=== PATIENT | male | born 1955 | race Caucasian/White ===

== ENCOUNTER 2023-12-25 13:56 | Outpatient (OUT) | payer MEDICARE, SELFPAY ==
--- NOTE | 2023-12-25 | XR_ITS ---
The [address] [address] Patient Name: ARRON SINGH MRN: [id number] date: 1955 Sex: M Assigned Patient Location: Current Patient Location: Accession/Order Number: [id number] Exam Date: 12/25/2023 13:58 Report Date: 12/25/2023 15:25 At the request of: RICO TERRY Procedure: XR foot LT min 3V PROCEDURE: XR foot LT min 3V, XR ankle LT min 3V COMPARISON: None. HISTORY: LEFT FOOT PAIN FINDINGS: BONES:No acute fracture or dislocation. Pes planus. Moderate degenerative changes of the midfoot with plantar rotation of the talus in relation to the navicular. SOFT TISSUES:Diffuse soft tissue swelling of the foot and ankle EFFUSION:None visible. OTHER: Negative. XR/XR foot LT min 3V IMPRESSION: Moderate degenerative changes with pes planus Electronically authenticated by: MARIA DOLORES CORTES Date: 12/25/2023 15:25
--- NOTE | 2023-12-25 | XR_ITS ---
The [address] [address] Patient Name: ARRON SINGH MRN: [id number] date: 1955 Sex: M Assigned Patient Location: Current Patient Location: Accession/Order Number: [id number] Exam Date: 12/25/2023 13:58 Report Date: 12/25/2023 15:25 At the request of: RICO TERRY Procedure: XR ankle LT min 3V PROCEDURE: XR foot LT min 3V, XR ankle LT min 3V COMPARISON: None. HISTORY: LEFT FOOT PAIN FINDINGS: BONES:No acute fracture or dislocation. Pes planus. Moderate degenerative changes of the midfoot with plantar rotation of the talus in relation to the navicular. SOFT TISSUES:Diffuse soft tissue swelling of the foot and ankle EFFUSION:None visible. OTHER: Negative. XR/XR ankle LT min 3V IMPRESSION: Moderate degenerative changes with pes planus Electronically authenticated by: MARIA DOLORES CORTES Date: 12/25/2023 15:25
== END 2023-12-25 13:57 | disposition home or self-care (01) ==
PROVIDERS: Visit Provider Podiatrist Foot & Ankle Surgery
DX: M79.672 Pain in left foot (principal); M25.572 Pain in left ankle and joints of left foot; M21.42 Flat foot [pes planus] (acquired), left foot
CPT/HCPCS: 73610; 73630

== ENCOUNTER 2024-01-21 07:59 | Outpatient (RCR) | payer MEDICARE, SELFPAY | END 2024-02-14 17:08 | disposition home or self-care (01) | LOC: OT 07:59 | PROVIDERS: Visit Provider Podiatrist Foot & Ankle Surgery | DX: I89.0 Lymphedema, not elsewhere classified (principal) | CPT/HCPCS: 97140; 97166; 97530; 97535 ==

== ENCOUNTER 2024-03-05 13:39 | Outpatient (RCR) | payer MEDICARE, SELFPAY | END 2024-03-06 11:33 | disposition home or self-care (01) | LOC: PT 13:39 | PROVIDERS: PCP Family Medicine; Visit Provider Family Medicine | DX: M54.16 Radiculopathy, lumbar region (principal) | CPT/HCPCS: 97110; 97163 ==